=== PATIENT | male | born 1955 | race Caucasian/White ===

== ENCOUNTER → 2018-11-01 | Outpatient (REF) | payer BC | LOC: LAB 11:05 | DX: Z02.89 Encounter for other administrative examinations (principal) ==

== ENCOUNTER → 2020-01-23 | Day surgery (SDC) | payer BC | LOC: MSO 08:13 | DX: Z12.11 Encounter for screening for malignant neoplasm of colon (principal); D12.3 Benign neoplasm of transverse colon; K57.30 Diverticulosis of large intestine without perforation or abscess without bleeding; E78.00 Pure hypercholesterolemia, unspecified; G47.33 Obstructive sleep apnea (adult) (pediatric); I48.91 Unspecified atrial fibrillation; K21.9 Gastro-esophageal reflux disease without esophagitis; E66.01 Morbid (severe) obesity due to excess calories; Z90.49 Acquired absence of other specified parts of digestive tract; Z88.1 Allergy status to other antibiotic agents; Z86.010 Personal history of colon polyps; Z79.82 Long term (current) use of aspirin; Z79.52 Long term (current) use of systemic steroids | CPT/HCPCS: 00811; J2704; J3010; J7120 ==

== ENCOUNTER → 2021-01-14 | Outpatient (REF) | LOC: LAB 08:59 | DX: R97.20 Elevated prostate specific antigen [PSA] (principal) ==

== ENCOUNTER → 2022-02-02 | Outpatient (CLI) | payer MEDICARE ==
[2022-02-02 12:03] LABS: ALBUMIN 4.5 g/dL (3.4-4.8)
[2022-02-02 12:05] LABS: CALCIUM 9.6 mg/dL (8.3-10.5)
[2022-02-02 12:06] LABS: TOTAL PROTEIN 7.5 g/dL (6.2-8.1)
== END ==
LOC: LAB 11:17
PROVIDERS: Family Medicine
DX: R97.20 Elevated prostate specific antigen [PSA] (principal)